=== PATIENT | female | born 1990 | race Two or more races ===

== ENCOUNTER 2018-09-02 20:05 | Emergency (ER) | payer SELFPAY ==
[~2018-09-02] VITALS: Ht 162.6 cm; Wt 79.8 kg
[2018-09-02 20:17] VITALS: BP 127/79
[2018-09-02] MEDS ORDERED: cefTRIAXone SOD 1,000 MG VL IM ONE (21:30)
[2018-09-02] MEDS ORDERED: AZITHROMYCIN 250 MG TAB PO ONE (21:30)
[2018-09-02 22:09] LABS: Urine Bacteria FEW /hpf (None Seen); Urine Blood Negative /uL (Negative); Urine Specific Gravity 1.006 (1.001-1.035); Urine WBC <1 /hpf (0 - 5)
== END 2018-09-02 22:08 | disposition home or self-care (01) ==
LOC: ER 20:16
DX: H10.31 Unspecified acute conjunctivitis, right eye (principal); Z20.2 Contact with and (suspected) exposure to infections with a predominantly sexual mode of transmission; Z32.02 Encounter for pregnancy test, result negative
CPT/HCPCS: 81001; 81025; 96372; 99283; J0696